=== PATIENT | female | born 1990 | race Caucasian/White ===

== ENCOUNTER 2017-01-02 22:02 | Emergency (ER) | payer MEDICAID ==
[~2017-01-02] VITALS: Wt 60.0 kg
[2017-01-03 00:21] LABS: ADD SCAN DIFF NO
[2017-01-03 00:23] LABS: BASOPHILS % 0.3 % (0.0-2.0); EOSINOPHILS # 0.1 10^3/ul (0.0-0.5); EOSINOPHILS % 0.9 % (0.0-7.0); HEMATOCRIT 35.7 % (37.0-47.0); HEMOGLOBIN 12.2 g/dl (12.0-16.0); LYMPHOCYTES # 1.1 10^3/ul (0.8-2.9); LYMPHOCYTES % 10.5 % (15.0-51.0); MEAN CORPUSCULAR HEMOGLOBIN 30.3 pg (29.0-33.0); MEAN CORPUSCULAR HGB CONC 34.2 g/dl (32.0-37.0); MEAN CORPUSCULAR VOLUME 88.8 fl (82.0-101.0); MEAN PLATELET VOLUME 9.5 fl (7.4-10.4); MONOCYTE # 0.7 10^3/ul (0.3-0.9); MONOCYTES % 6.5 % (0.0-11.0); NEUTROPHIL # 8.9 10^3/ul (1.6-7.5); NEUTROPHILS % 81.4 % (39.0-77.0); PLATELET COUNT 326 10^3/UL (140-415); RED BLOOD COUNT 4.02 10^6/ul (4.20-5.40); RED CELL DISTRIBUTION WIDTH 12.6 % (11.5-14.5); WHITE BLOOD COUNT 10.9 10^3/ul (4.8-10.8)
[2017-01-03 00:27] LABS: ADD UMIC YES; UR BILIRUBIN (Dip) NEGATIVE (NEGATIVE); UR BLOOD (Dip) 2+ (NEGATIVE); UR CLARITY CLEAR (CLEAR); UR COLOR LT. YELLOW (YELLOW); UR GLUCOSE (Dip) NEGATIVE (NEGATIVE); UR KETONES (Dip) 15 (NEGATIVE); UR LEUKOCYTE ESTERASE (Dip) NEGATIVE (NEGATIVE); UR NITRITE (Dip) NEGATIVE (NEGATIVE); UR TOTAL PROTEIN (Dip) NEGATIVE (NEGATIVE); UR UROBILINOGEN (Dip) 0.2 E.U./dL (0.1-1.0)
--- NOTE | 2017-01-03 00:41 | RADRPT ---
PROCEDURE: US OB. CLINICAL INDICATION: Positive , vaginal bleeding TECHNIQUE: Transabdominal and transvaginal views of the pelvis are available for review. COMPARISON: No prior studies are available for comparison. FINDINGS: Uterus: Normal. There is no evidence of myometrial mass. Endometrial cavity: No intrauterine is identified, the thickness is increased measuring 1 6.8 mm. Right ovary / adnexa: Ovarian size is normal measuring 3.2 x 2.3 x 1.9 cm and there is no evidence of adnexal mass. Normal blood flow on Doppler interrogation is present. Left ovary/adnexa: Ovarian size is normal measuring 3.3 x 1.8 x 1.7 cm with no evidence of ovarian or adnexal mass. Normal blood flow seen on Doppler interrogation. Cul-de-sac: No evidence of free fluid. RPTAT:HJJR IMPRESSION: No intrauterine identified. Ectopic is not excluded, but there are no suspiciou s findings at this time. Correlation with serial beta HCGs is suggested with followup as clinically indicated. Physician Chelita Date Time Electronically viewed and signed by Physician Chelita on 01/03/2017 00:41 JR/
[2017-01-03 00:47] LABS: URINE RBCS 0-2 /HPF (0)
[2017-01-03 00:48] LABS: UR BACTERIA OCCASIONAL; UR MUCUS OCCASIONAL; UR SQUAMOUS EPITHELIAL CELL OCCASIONAL
[2017-01-03] MEDS ORDERED: ACET325T33 PO (01:50)
[2017-01-03 01:56] VITALS: BP 115/58; PULSE 72; RESP 18; TEMP 98.5
--- NOTE | 2017-01-03 02:03 | ERD ---
ER Documentation Chief Complaint Date/Time DATE: 01/03/17 TIME: 01:59 Chief Complaint Vaginal bleed and pelvic pain, 5 wks HPI 26-year-old female patient who is a presents to the ED complaining of slight suprapubic pain and vaginal spotting that started earlier today that became a little heavier with bright red blood bleeding. Reports that her last menses was on November 27, 2016. Denies any dysuria, urgency, frequency, flank pain, abdominal pain, nausea, vomiting, chest pain, shortness of breath, wheezing. Reports that she has an BUSINESS OBJECTS but is not sure of their name. ROS All systems reviewed and are negative except as per history of present illness. Medications Home Meds Active Scripts Acetaminophen* (Tylenol*) 325 Mg Tablet, 1 TAB PO Q6 Y for PAIN AND OR ELEVATED TEMP, #20 TAB Prov:MICHELLE MEZA PA-C 01/03/17 Allergies Allergies: Uncoded Allergies: PENICILLIN (Allergy, Intermediate, Hives, 01/02/17) PMhx/Soc Medical and Surgical Hx: pt denies Medical Hx, pt denies Surgical Hx History of Surgery: No Anesthesia Reaction: No Hx Neurological Disorder: No Hx Respiratory Disorders: No Hx Cardiac Disorders: No Hx Psychiatric Problems: No Hx Miscellaneous Medical Probl: No Hx Alcohol Use: No Hx Substance Use: No Smoking Status: Never smoker Physical Exam Vitals Vital Signs Date Time Temp Pulse Resp B/P Pulse Ox O2 Delivery O2 Flow Rate FiO2 01/03/17 01:56 98.5 72 18 115/58 98 Room Air 01/02/17 22:11 98.5 82 20 113/58 98 Physical Exam Const: Dni-[id number]-ahiuvphmb, well-nourished. In no acute distress. Head: Atraumatic, normocephalic Eyes: Normal Conjunctiva without injection. No purulent discharge. ENT: Normal external ear, nose. Moist oropharynx without tonsillar exudates. Non -erythematous pharynx. Uvula midline. No drooling. No trismus. Neck: No cervical midline tenderness. Full range of motion. No meningismus. No cervical lymphadenopathy. No JVD. Resp: Clear to auscultation bilaterally. No wheezing, rhonchi, rales, or crackles. No accessory muscle use. No retractions. Cardio: Regular rate and rhythm. No murmurs, rubs or gallops. Abd: Soft, slight left pelvic pain. Non distended. Normal bowel sounds. No palpable masses. No rebound tenderness. No guarding. Negative McBurney's point. Negative psoas sign. Negative obturator sign. : See exam in [facility]. Skin: No petechiae or rashes Back: No midline tenderness. No CVA tenderness. Ext: No cyanosis, or edema. Neur: Awake and alert. Normal gait. Normal coordination. Psych: Normal Mood and Affect Results 24 hrs Laboratory Tests Test 01/03/17 00:10 White Blood Count 10.910^3/ul Red Blood Count 4.0210^6/ul Hemoglobin 12.2g/dl Hematocrit 35.7% Mean Corpuscular Volume 88.8fl Mean Corpuscular Hemoglobin 30.3pg Mean Corpuscular Hemoglobin Concent 34.2g/dl Red Cell Distribution Width 12.6% Platelet Count 68355^3/UL Mean Platelet Volume 9.5fl Neutrophils % 81.4% Lymphocytes % 10.5% Monocytes % 6.5% Eosinophils % 0.9% Basophils % 0.3% Nucleated Red Blood Cells % 0.0/100WBC Neutrophils # 8.910^3/ul Lymphocytes # 1.110^3/ul Monocytes # 0.710^3/ul Eosinophils # 0.110^3/ul Basophils # 0.010^3/ul Nucleated Red Blood Cells # 0.010^3/ul Urine Color LT. YELLOW Urine Clarity CLEAR Urine pH 5.5 Urine Specific [place] 1.020 Urine Ketones 15 Urine Nitrite NEGATIVE Urine Bilirubin NEGATIVE Urine Urobilinogen 0.2 E.U./dL Urine Leukocyte Esterase NEGATIVE Urine Microscopic RBC 0-2/HPF Urine Microscopic WBC NONE SEEN/HPF Urine Squamous Epithelial Cells OCCASIONAL Urine Bacteria OCCASIONAL Urine Mucus OCCASIONAL Urine Hemoglobin 2+ Urine Glucose NEGATIVE% Urine Total Protein NEGATIVE Beta HCG, Quantitative 9.2mIU/ml Procedures/[facility] 26-year-old female patient with no significant past medical history is a presents the ED complaining of vaginal bleeding that started earlier today. Patient is afebrile and nontoxic-appearing. An ultrasound, beta-hCG, CBC, type and RH, UA was ordered to evaluate patient. CBC: No evidence of severe infection or anemia Urine: No elevation in nitrites, leukocyte esterase, hematuria. No evidence of UTI Rh: O positive No indication for Rhogam at this time. beta Hc.2 PROCEDURE: US OB. CLINICAL INDICATION: Positive , vaginal bleeding TECHNIQUE: Transabdominal and transvaginal views of the pelvis are available for review. COMPARISON: No prior studies are available for comparison. FINDINGS: Uterus: Normal. There is no evidence of myometrial mass. Endometrial cavity: No intrauterine is identified, the thickness is increased measuring 16.8 mm. Right ovary / adnexa: Ovarian size is normal measuring 3.2 x 2.3 x 1.9 cm and there is no evidence of adnexal mass. Normal blood flow on Doppler interrogation is present. Left ovary/adnexa: Ovarian size is normal measuring 3.3 x 1.8 x 1.7 cm with no evidence of ovarian or adnexal mass. Normal blood flow seen on Doppler interrogation. Cul-de-sac: No evidence of free fluid. RPTAT:HJJR IMPRESSION: No intrauterine identified. Ectopic is not excluded, but there are no suspicious findings at this time. Correlation with serial beta HCGs is suggested with followup as clinically indicated. Patient's bleeding symptoms have stabilized while in the department. Differentials include early . At this time an ectopic cannot be ruled out. Patient was instructed to return to the ED or with her OB/ RN IMCU in 2 days for repeat beta hCG and possible ultrasound. Low suspicion for symptomatic anemia, sepsis, PID, appendicitis, ovarian torsion, tubo-ovarian abscess, surgical abdomen, or other emergent conditions. Patient was educated that there is a risk for threatened . Discharge medications: Tylenol Patient to follow up with [employer] in 2 days for further evaluation and treatment. Patient is to return sooner to the ED for any worsening symptoms. Patient's questions were answered. Patient understood and agreed with discharge plan. Departure Diagnosis: Primary Impression: Vaginal bleeding in patient at less than 20 weeks ges... Condition: Stable Patient Instructions: Bleeding During Early Referrals: MARY CUENCA MD (PCP) [facility] YOU HAVE RECEIVED A MEDICAL SCREENING EXAM AND THE RESULTS INDICATE THAT YOU DO NOT HAVE A CONDITION THAT REQUIRES URGENT TREATMENT IN THE EMERGENCY DEPARTMENT. FURTHER EVALUATION AND TREATMENT OF YOUR CONDITION CAN WAIT UNTIL YOU ARE SEEN IN YOUR DOCTORS OFFICE WITHIN THE NEXT 1-2 DAYS. IT IS YOUR RESPONSIBILITY TO MAKE AN APPOINTMENT FOR FOLOW-UP CARE. IF YOU HAVE A PRIMARY DOCTOR --you should call your primary doctor and schedule an appointment IF YOU DO NOT HAVE A PRIMARY DOCTOR YOU CAN CALL OUR PHYSICIAN REFERRAL HOTLINE AT IF YOU CAN NOT AFFORD TO SEE A PHYSICIAN YOU CAN CHOSE FROM THE FOLLOWING [facility] [address] [facility] [address] [facility] [facility] [address] [facility] [address] [facility] [facility] [address] [facility]. [facility] [address] [facility]. [facility] YOU HAVE RECEIVED A MEDICAL SCREENING EXAM AND THE RESULTS INDICATE THAT YOU DO NOT HAVE A CONDITION THAT REQUIRES URGENT TREATMENT IN THE EMERGENCY DEPARTMENT. FURTHER EVALUATION AND TREATMENT OF YOUR CONDITION CAN WAIT UNTIL YOU ARE SEEN IN YOUR DOCTORS OFFICE WITHIN THE NEXT 1-2 DAYS. IT IS YOUR RESPONSIBILITY TO MAKE AN APPOINTMENT FOR FOLOW-UP CARE. IF YOU HAVE A PRIMARY DOCTOR --you should call your primary doctor and schedule and appointment IF YOU DO NOT HAVE A PRIMARY DOCTOR YOU CAN CALL OUR PHYSICIAN REFERRAL HOTLINE AT . IF YOU CAN NOT AFFORD TO SEE A PHYSICIAN YOU CAN CHOSE FROM THE FOLLOWING [facility]: [facility] [address] [place] [address] [facility] [address] [place] [address] [facility] [address] [place] [address] [employer] [place] [address] [facility] [address] [place] [address] OFFICE FAX LITZY HODGES [address] [place] [address] [facility] [address] [place], [place] [phone] [phone] PLASCENCIA, [place] [address] [facility], [address], [place] [address] MARY LOPEZ [address] [facility], [place] [address] [facility] [place] [address] [place] [address] [address] [facility], [facility] [address] [address] SEBASTIAN, [place] [address], [place] [address] [address] WAGNER, [place] [address] [facility]. [address], [place] [address] [address] DUBOIS, [place] [address] [place], [place] [id number] [facility] Hours: 8:00 am - 5:00 pm Additional Instructions: Return to this facility in 2 DAYS for a follow-up exam with your [employer] to repeat beta HCG hormone level and ultrasound.Return sooner if your condition worsens -worsening bleeding, fever, chills, vomiting, worsening abdominal pain/ pelvic pain. MICHELLE MEZA PA-C Jan 03, 2017 02:03 MICHELLE MEZA PA-C Jan 03, 2017 02:03
== END 2017-01-03 01:59 | disposition home or self-care (01) ==
LOC: FTE 22:02
DX: O20.9 Hemorrhage in early pregnancy, unspecified (principal); R10.2 Pelvic and perineal pain; Z3A.01 Less than 8 weeks gestation of pregnancy
CPT/HCPCS: 36415; 76801; 76817; 81001; 84702; 85025; 86900; 86901; Z7502